=== PATIENT | female | born 1990 | race American Indian/Alaskan Native ===

== ENCOUNTER 2017-07-17 07:58 | Emergency (ER) | payer OTHER ==
[2017-07-17 08:07] VITALS: BP 108/72
[2017-07-17] MEDS ORDERED: NACL 0.9% 1000 ML 1,000 ML IV ONE (09:07)
[2017-07-17] MEDS ORDERED: PEPCID IV ONE (09:07)
[2017-07-17] MEDS ORDERED: ZOFRAN IV ONE (09:07)
[2017-07-17] MEDS ORDERED: NACL 0.9% 1000 ML 1,000 ML ONE (09:08)
--- NOTE | 2017-07-17 09:10 | Emergency Department Report ---
Chief Complaint: Nausea/Vomiting/Diarrhea Stated Complaint: NAUSEA/VOMITING Time Seen by Provider: 07/17/17 09:06 - HPI History of Present Illness: 27-year-old female presents with 24 hours of nausea and vomiting since eating lunch yesterday. She has not taken anything for her symptoms prior to presentation. She can not keep anything down. No past medical history. No recent travel or sick contacts at home. - ROS Review of Systems: Negative for fever, abdominal pain, dysuria, vaginal bleeding or discharge. Positive for generalized weakness - Exam Vital Signs: Vital Signs 07/17/17 08:00 Temperature 98.6 F Pulse Rate 73 Respiratory 16 Rate Blood Pressure 108/72 O2 Sat by Pulse 99 Oximetry Physical Exam: Patient appears uncomfortable secondary to her nausea. Heart and lung sounds normal to auscultation. MSE screening note: Focused history and physical exam performed. Due to findings the following was ordered: Vital signs stable. Afebrile. We will order a CBC, CMP, lipase, and urinalysis. She will get IV fluid, Zofran, Pepcid and will be reassessed. ED Disposition for MSE Condition: Stable Referrals: PRIMARY CARE [Primary Care Provider] - 3-5 Days
[2017-07-17 09:44] LABS: Basophils % (Auto) 0.1 % (0.0-1.8); Hematocrit 38.6 % (30.3-42.9); Hemoglobin 12.3 gm/dl (10.1-14.3); Lymphocytes # (Auto) 0.8 K/mm3 (1.2-5.4); Lymphocytes % (Auto) 8.9 % (13.4-35.0); Mean Corpuscular HGB Conc 32 % (30-34); Mean Corpuscular Hemoglobin 29 pg (28-32); Mean Corpuscular Volume 92 fl (79-97); Monocytes # (Auto) 0.3 K/mm3 (0.0-0.8); Monocytes % (Auto) 3.8 % (0.0-7.3); Platelet Count 185 K/mm3 (140-440); Red Blood Count 4.22 M/mm3 (3.65-5.03); Red Cell Distribution Width 12.3 % (13.2-15.2)
--- NOTE | 2017-07-17 09:46 | Emergency Department Report ---
Vomiting/Diarrhea - HPI Chief Complaint: Nausea/Vomiting/Diarrhea Stated Complaint: NAUSEA/VOMITING Time Seen by Provider: 07/17/17 09:06 Duration: 1 Day Severity: moderate Nausea/Vomiting Severity: Moderate Diarrhea Severity: None Pain Location: Generalized (cramping with diarrhea) Pain Severity: None Symptoms: Yes Watery Diarrhea (resolved), Yes Able to Tolerate Fluids, Yes Recent Unusual Foods (At lunch yesterday at work), No Bloody diarrhea, No Fever , No Recent Untreated Water, No Recent use of Antibiotics, No Family w/ Similar Symptoms, No Contacts w/ Similar Symptoms, No Rash, No Hematuria, No Recent URI Symptoms Other History: This is a 27-year-old female presents with nausea vomiting and diarrhea starting yesterday at lunch. Patient states she is currently having nausea and vomiting with one episode here while waiting in the waiting area. Reports diarrhea has resolved, the last episode was last night. She was having mild cramping with diarrhea which currently has resolved. She took Pepto- Bismol once yesterday but vomited shortly after taken. She is drinking increase fluid intake including Gatorade. But unable to hold any solid foods down at this time. Denies recent travel, fever, chest pain, and SOB. ED Review of Systems ROS: Stated complaint: NAUSEA/VOMITING Other details as noted in HPI Constitutional: denies: chills, fever Respiratory: denies: cough, shortness of breath, wheezing Cardiovascular: denies: chest pain, palpitations, edema, syncope Gastrointestinal: abdominal pain (cramping with diarrhea), nausea, vomiting, diarrhea Neurological: denies: headache, weakness, paresthesias Psychiatric: denies: anxiety, depression ED Past Medical Hx - Past Medical History Hx Hypertension: Yes (GESTATIONAL) - Surgical History Additional Surgical History: , CYST REMOVED FROM BUTTOCKS, ANKLE SURGERY - Social History Smoking Status: Current Every Day Smoker Substance Use Type: Alcohol, Marijuana - Medications Home Medications: Home Medications Medication Instructions Recorded Confirmed Last Taken Type Ciprofloxacin HCl [Cipro] 500 mg PO BID 5 Days #10 tablet 07/17/17 Unknown Rx Famotidine [Pepcid] 40 mg PO QHS #30 tablet 07/17/17 Unknown Rx Ondansetron [Zofran TAB] 4 mg PO Q8HR PRN #15 tablet 07/17/17 Unknown Rx Vomiting Diarrhea Exam - Exam General: Vital signs noted. No distress. Alert and acting appropriately. HEENT: Yes Moist Mucous Membranes, No Pharyngeal Erythema, No Pharyngeal Exudates, No Rhinorrhea, No Conjuctival Injection, No Frontal Tenderness, No Maxillary Tenderness Neck: No Adenopathy, No Rigidity Lungs: Yes Clear Lung Sounds, Yes Good Air Exchange, No Wheezes, No Stridor, No Cough, No Nasal Flaring, No Retractions, No Use of Accessory Muscles Heart exam: Regular: Yes, Murmur: No, Tachycardia: No Abdomen: Tenderness: Yes (LUQ, no rebound tenderness, or rigidity), Peritoneal Signs: No, Distention: No, Hyperactive Bowel sounds: No Skin exam: Rash: No, Edema: No, Normal turgor: Yes Neurologic: Alert and oriented, no deficits. Musculoskeletal: Unremarkable. ED Course Vital Signs 07/17/17 08:00 Temperature 98.6 F Pulse Rate 73 Respiratory 16 Rate Blood Pressure 108/72 O2 Sat by Pulse 99 Oximetry ED Medical Decision Making - Lab Data Result diagrams: 07/17/17 09:17 07/17/17 09:17 - Medical Decision Making This is a 24 y.o. female that presents with nausea and vomiting since lunch yesterday. Patient examined by me and Dr. Delaney. Slightly distress noted. Vitals stable. Obtained UA, HCG, CMP, CBC, and lipase. UA, elevated WBC's. Given Pepcid, Zofran twice, 1 L normal saline bolus. Start zofran and pepcid for gastroenteritis. Start cipro for UTI. Increase fluid intake. Follow up with PCP in 2-3 days. Critical care attestation.: If time is entered above; I have spent that time in minutes in the direct care of this critically ill patient, excluding procedure time. ED Disposition Clinical Impression: Gastroenteritis UTI (urinary tract infection) Qualifiers: Urinary tract infection type: acute cystitis Hematuria presence: with hematuria Qualified Code(s): N30.01 - Acute cystitis with hematuria Disposition: TO HOME OR SELFCARE Is pt being admited?: No Does the pt Need Aspirin: No Condition: Stable Instructions: Gastroenteritis (ED), Acute Nausea and Vomiting (ED) Additional Instructions: Frequent hand washing is important to reduce spread. Prompt disinfection of contaminated surfaces with household chlorine bleach- based soil engineer and washing of soiled clothing and bedding should be advised. If food or water is thought to be contaminated, it should be avoided. Increase fluid intake. Drinks high in sugars such as carbonated soft drinks, fruit juice, and highly sugared liquids should be avoided. Follow-up with primary care provider in 2-3 days. Prescriptions: Famotidine [Pepcid] 40 mg PO QHS #30 tablet Ciprofloxacin HCl [Cipro] 500 mg PO BID 5 Days #10 tablet Ondansetron [Zofran TAB] 4 mg PO Q8HR PRN #15 tablet PRN Reason: Nausea And Vomiting Referrals: [facility] [Outside] - 3-5 Days [facility] [Outside] - 3-5 Days [facility] [Outside] - 3-5 Days Forms: Accompanied Note, Work/School Release Form(ED) Time of Disposition: 11:26 Print Language: GERMAN
[2017-07-17 10:00] LABS: Alanine Aminotransferase 16 units/L (7-56); Albumin 4.8 g/dL (3.9-5); BUN/Creatinine Ratio 25; Blood Urea Nitrogen 10 mg/dL (7-17); Calcium 9.7 mg/dL (8.4-10.2); Hemolysis Index 3; Lipase 12 units/L (13-60)
[2017-07-17 10:42] LABS: Bilirubin,Urine NEG (Negative); Blood,Urine NEG (Negative); Color,Urine Yellow (Yellow); Mucus,Urine 3+ /HPF; Urobilinogen,Urine < 2.0 mg/dL (<2.0)
[2017-07-17] MEDS ORDERED: ZOFRAN ODT PO ONE (11:18)
== END 2017-07-17 11:46 | disposition home or self-care (01) ==
LOC: ED 07:58
DX: K52.9 Noninfective gastroenteritis and colitis, unspecified (principal); N39.0 Urinary tract infection, site not specified; F17.200 Nicotine dependence, unspecified, uncomplicated; F12.10 Cannabis abuse, uncomplicated
CPT/HCPCS: 36415; 80053; 81001; 83690; 84703; 85025; 96361; 96374; 96375; 99282; J2405; J7030; Q0162

== ENCOUNTER 2017-08-01 12:22 | Emergency (ER) | payer OTHER ==
[2017-08-01 13:33] LABS: Basophils % (Auto) 0.3 % (0.0-1.8); Hemoglobin 12.6 gm/dl (10.1-14.3); Lymphocytes % (Auto) 14.6 % (13.4-35.0); Mean Corpuscular HGB Conc 33 % (30-34); Mean Corpuscular Hemoglobin 30 pg (28-32); Mean Corpuscular Volume 91 fl (79-97); Monocytes # (Auto) 0.2 K/mm3 (0.0-0.8); Monocytes % (Auto) 3.7 % (0.0-7.3); Platelet Count 223 K/mm3 (140-440); Red Cell Distribution Width 12.7 % (13.2-15.2)
[2017-08-01 13:58] LABS: Alanine Aminotransferase 13 units/L (7-56); Albumin 4.9 g/dL (3.9-5); BUN/Creatinine Ratio 25; Blood Urea Nitrogen 10 mg/dL (7-17); Calcium 9.5 mg/dL (8.4-10.2); Hemolysis Index 7
[2017-08-01] MEDS ORDERED: ZOFRAN ODT PO ONE (15:02)
[2017-08-01] MEDS ORDERED: TYLENOL PO ONE (15:03)
[2017-08-01] MEDS ORDERED: TYLENOL ONE (15:11)
[2017-08-01] MEDS ORDERED: ZOFRAN ODT ONE (15:12)
[2017-08-01 16:16] VITALS: BP 111/71
--- NOTE | 2017-08-01 20:38 | Emergency Department Report ---
HPI - General Chief Complaint: Abdominal Pain Time Seen by Provider: 08/01/17 14:53 - HPI HPI: The patient is a 27-year-old female who presents for evaluation of abdominal pain. The patient reports upper abdominal pain for the past 2-3 days, constant since onset, crampy in quality, moderate severity, and associated with nausea and multiple episodes of nonbilious, nonbloody emesis. The patient denies fever , chills, night sweats, diarrhea, blood in the stool, dark tarry stool, dysuria , hematuria, flank pain, genital discharge, inability to pass flatus. ED Past Medical Hx - Past Medical History Hx Hypertension: Yes (GESTATIONAL) Additional medical history: hernia - Surgical History Additional Surgical History: , CYST REMOVED FROM BUTTOCKS, ANKLE SURGERY - Social History Smoking Status: Current Every Day Smoker Substance Use Type: Alcohol, Marijuana - Medications Home Medications: Home Medications Medication Instructions Recorded Confirmed Last Taken Type Ciprofloxacin HCl [Cipro] 500 mg PO BID 5 Days #10 tablet 07/17/17 Unknown Rx Famotidine [Pepcid] 40 mg PO QHS #30 tablet 07/17/17 Unknown Rx Ondansetron [Zofran TAB] 4 mg PO Q8HR PRN #15 tablet 07/17/17 Unknown Rx HYDROcodone/APAP 5-325 [Ribera 1 each PO Q6HR PRN #10 tablet 08/01/17 Unknown Rx 5/325] Ibuprofen [Motrin] 800 mg PO Q8HR PRN #15 tablet 08/01/17 Unknown Rx Ondansetron [Zofran TAB] 4 mg PO Q8HR PRN #20 tablet 08/01/17 Unknown Rx ED Review of Systems ROS: Stated complaint: NAUSEA/VOMITING Other details as noted in HPI Constitutional: denies: fever ENT: denies: throat or neck pain Respiratory: denies: cough, shortness of breath Cardiovascular: denies: chest pain Endocrine: denies unexplained weight loss or gain Gastrointestinal: reoports: abdominal pain, nausea Genitourinary: denies: dysuria Musculoskeletal: denies: leg swelling Skin: denies: rash Neurological: denies: headache Hematological/Lymphatic: denies: easy bleeding or easy bruising Psych: denies sadness or hopelessness Physical Exam - Physical Exam Vital Signs: Vital Signs 08/01/17 08/01/17 08/01/17 12:50 15:13 15:30 Temperature 99 F Pulse Rate 63 Respiratory 16 Rate Blood Pressure 117/87 117/71 107/70 O2 Sat by Pulse 100 Oximetry 08/01/17 16:00 Temperature Pulse Rate Respiratory Rate Blood Pressure 111/71 O2 Sat by Pulse Oximetry Physical Exam: General: well-nourished, well-developed, no acute distress Head: Normocephalic, atraumatic Eyes: normal sclera ENT: Mucous membranes are pink and moist Neck: trachea midline, neck supple, No neck stiffness, no cervical adenopathy Respiratory: Breath sounds equal bilaterally, no wheezing, rales, or rhonchi Cardio: S1 and S2 present, no murmurs, rubs, gallops, capillary refill is brisk Abdomen: Normoactive bowel sounds, soft abdomen, epigastric tenderness to palpation present, no rigidity, no guarding or rebound tenderness Chest WALL/Back: No tenderness to palpation of the chest wall, no CVA tenderness with percussion Musc: No pitting edema Skin: No rash Neuro: no facial drooping, normal speech Psych: Normal affect ED Course Vital Signs 08/01/17 08/01/17 08/01/17 12:50 15:13 15:30 Temperature 99 F Pulse Rate 63 Respiratory 16 Rate Blood Pressure 117/87 117/71 107/70 O2 Sat by Pulse 100 Oximetry 08/01/17 16:00 Temperature Pulse Rate Respiratory Rate Blood Pressure 111/71 O2 Sat by Pulse Oximetry ED Medical Decision Making - Lab Data Result diagrams: 08/01/17 13:22 08/01/17 13:22 - Medical Decision Making The patient was seen and examined by myself. The patient is placed on a monitoring coordinator and continuous pulse ox. On initial evaluation, the patient was found to be in no distress. Evaluation orders are placed. The patient given by mouth Zofran for her nausea and by mouth pain medicine. A.Lab results were non- concerning including WBC, hemoglobin, hematocrit, electrolytes, renal function, LFTs, lipase, and urinalysis. The patient was reevaluated and reported that their symptoms were markedly improved. The patient is stable for discharge with outpatient follow-up. The patient is given follow-up and return instructions. The patient expressed understanding and agreed with the plan. The patient is discharged in stable condition. Critical care attestation.: If time is entered above; I have spent that time in minutes in the direct care of this critically ill patient, excluding procedure time. ED Disposition Clinical Impression: Nausea and vomiting in adult, Abdominal pain, acute, epigastric Disposition: TO HOME OR SELFCARE Is pt being admited?: No Does the pt Need Aspirin: No Condition: Stable Instructions: Gastroenteritis (ED), Food Poisoning (ED), Abdominal Pain (ED) Prescriptions: HYDROcodone/APAP 5-325 [Ribera 5/325] 1 each PO Q6HR PRN #10 tablet PRN Reason: Pain Ibuprofen [Motrin] 800 mg PO Q8HR PRN #15 tablet PRN Reason: Pain Ondansetron [Zofran TAB] 4 mg PO Q8HR PRN #20 tablet PRN Reason: Nausea Referrals: PRIMARY CARE, [Primary Care Provider] - 3-5 Days Time of Disposition: 16:35
== END 2017-08-01 16:30 | disposition home or self-care (01) ==
LOC: ED 12:22
DX: R10.13 Epigastric pain (principal); R11.2 Nausea with vomiting, unspecified; I10 Essential (primary) hypertension; F17.200 Nicotine dependence, unspecified, uncomplicated; F12.10 Cannabis abuse, uncomplicated
CPT/HCPCS: 36415; 80053; 84703; 85025; 99284; Q0162